=== PATIENT | female | born 1960 | race Caucasian/White ===

== ENCOUNTER 2017-04-02 11:49 | Day surgery (SDC) | payer MEDICARE, MEDICAID ==
--- NOTE | 2017-03-17 22:20 | HP ---
ADMISSION HISTORY AND PHYSICAL: DATE OF ADMISSION: 04/02/17 PATIENT OF: David Flores MD (dictated by SONAM Welsh). CHIEF COMPLAINT: Right upper quadrant abdominal pain and known history of cholelithiasis. HISTORY OF PRESENT ILLNESS: Sully is a pleasant 57-year-old female, who presented to our office today for a preoperative evaluation considering a scheduled laparoscopic cholecystectomy to be performed by Dr. David Flores on 02/14. The patient reports an ongoing pain usually located to her epigastric and right upper quadrant on and off for the past year or so. She is known to our practice from prior laparoscopic sleeve gastrectomy back in March 2015. She had lost approximately 100 pounds and has been doing very well with her weight loss. She described her pain as being dull with sharp episode mostly postprandial, localized to right upper quadrant with no radiation or any other associated symptoms. She denied any nausea, vomiting, changes in the bowel habits or changes in the color of stool or urine. She had a right upper quadrant ultrasound 2 weeks ago that revealed cholelithiasis with no evidence of inflammation or CBD dilatation. She was seen by Dr. Flores last week and had a good discussion regarding her sonogram findings and planning to do a laparoscopic cholecystectomy on a later date electively. The patient had moved out of town since then and she is currently residing in [place], but willing to drive and travel to have her surgery at [facility]. As mentioned above, she has been doing very well with her weight loss. She was seen in the office today to answer a few questions and to do her preadmission testing as well as to discuss her planned surgery 2 weeks from today. PAST MEDICAL HISTORY: Essentially unremarkable. She does take a beta-aly for essential tremors, but denies any history of heart, lung, kidney or liver disease. PAST SURGICAL HISTORY: Significant for left total knee arthroplasty, right rotator cuff repair, total abdominal hysterectomy with BSO, repair of epigastric hernia at age 1. She also reports right knee arthroscopy with meniscus repair 2 weeks ago. CURRENT MEDICATIONS: Her medications at home include: 1. Omeprazole 20 mg 1 tablet every day. 2. Propranolol 10 mg 1 tablet daily. 3. Multivitamin 1 tablet every day. 4. Calcium chew 1 tablet every day. 5. Vitamin B12 once by mouth every day. ALLERGIES: She is allergic to CODEINE, OXYCODONE, and HYDROCODONE. FAMILY HISTORY: She denies any family history of gallbladder disease or colorectal malignancies. SOCIAL HISTORY: The patient is a nonsmoker who denies alcohol intake and caffeine intake is minimal. She had moved from [facility] and now lives in [place]. REVIEW OF SYSTEMS: See HPI, otherwise negative. She denies any headache, dizziness, change of vision, recent weight loss. No fever, chills, chest pain or shortness of breath. She denies any nausea, vomiting, changes in the bowel habits or bleeding per rectum. No flank pain, dysuria, hematuria, or urinary frequency. PHYSICAL EXAMINATION GENERAL: She is a pleasant middle-aged female, appears healthy and in no acute distress or discomfort at the time of her office visit. VITAL SIGNS: Revealed blood pressure of 108/70, respiration of 16, temperature of 97.0, and pulse of 78. The patient's height of 63 inches and weight 169 pounds given her BMI of 29.9 HEENT: Sclerae anicteric. PERRLA. EOMs intact. Oropharynx is pink, moist with no exudate. NECK: Supple. Trachea midline. No cervical adenopathy, thyromegaly, or JVD. LUNGS: Clear to auscultation bilaterally. HEART: Regular rate and rhythm. Normal S1 and S2 without rubs, murmurs, or gallops. BACK: With normal curvature. No CVA tenderness. ABDOMEN: Soft and nondistended. Mild right upper quadrant tenderness on deep palpation. However, there is no guarding, rigidity, or rebound tenderness. Flaherty's sign was negative. Incisions from prior sleeve gastrectomy are well healed. No evidence of hernias, masses, or hepatosplenomegaly. BREASTS: Deferred at this time. EXTREMITIES: Without cyanosis, clubbing, or edema. NEUROLOGIC: Grossly intact. RECTAL: Deferred at this time. ACCESSORY DIAGNOSTIC DATA: As mentioned above, the patient had a sonogram earlier this month revealing evidence of cholelithiasis with no surrounding edema or dilation of the common duct. IMPRESSION: A 57-year-old female with signs and symptoms as well as sonogram findings consistent with chronic cholecystitis with cholelithiasis. PLAN: The patient is scheduled for an elective laparoscopic cholecystectomy to be performed by Dr. Flores on 04/02/17. She was here in the office today to answer few questions and to discuss surgery with her. She will also have her preadmission testing including laboratory workup and EKG later this afternoon. I went on and discussed with her proceeding with a laparoscopic cholecystectomy given her ongoing symptoms. The rationale, indications, risks, and benefits of the procedure were discussed with her today. Risks include, but not limited to infection, bleeding, or injury to adjacent structures. She seems to understand and wishes to proceed as outlined. It is also to be mentioned that given her allergies to CODEINE and HYDROCODONE, I offered given her tramadol to be filled today to use postoperatively; however, the patient informed me that she has a lot of tramadol at home that was given to her after her knee arthroscopy 2 weeks ago. No script for any pain medication was given to her today per patient request and I will reevaluate that in 2 weeks after her surgery to see if she will need any pain prescriptions to be taken home. We will follow her up accordingly after the surgery. [facility] SONAM BRADSHAW CC: Justin Harrington MD* [id number]/[facility] #: [id number] MTDJuanito
[~2017-04-02 11:49] MED LIST: Buffered Lidocaine 1% SYRIN* 3 ML/SYR SYRINGE INTRADERM ONE
[2017-04-02] MEDS ORDERED: ceFAZolin 2 GM PREMIX(*) 2 GM/50 ML BAG IVPB ONE (12:00)
[2017-04-02] MEDS ORDERED: fentaNYL* 50 MCG/ML 2 ML VIAL (100 MCG VIAL) ONE ×3 (13:28→15:39)
[2017-04-02] MEDS ORDERED: Midazolam* 1 MG/ML 2 ML VIAL (2 MG) ONE (13:28)
[2017-04-02] MEDS ORDERED: Bupivacaine 0.25% EPI 200,000* 30 ML SDV ONE (13:49)
[2017-04-02] MEDS ORDERED: Propofol* 10 MG/ML 20 ML BTL IV PUSH ONE (14:22)
[2017-04-02] MEDS ORDERED: Dexamethasone IV* 4 MG/ML 1 ML (4 MG) ONE (14:22)
[2017-04-02] MEDS ORDERED: Ondansetron INJ* 2 MG/ML VIAL ONE (14:22)
[2017-04-02] MEDS ORDERED: Scopolamine 1.5 mg* PATCH TRANSDERM PRN (14:45)
[2017-04-02] MEDS ORDERED: Metoclopramide IV* 5 MG/ML 2 ML VIAL IV PRN (14:45)
[2017-04-02] MEDS ORDERED: Bacitracin OINTMENT* 1 TUBE ONE (14:58)
--- NOTE | 2017-04-02 15:02 | SURGPN ---
Brief Operative Note - Surgery Procedures: Procedures Pre-OP Diagnoses: chronic cholecystitis Post-op Diagnosis: same Procedure: Laparoscopic cholecystectomy Surgeon: Sandra Asst: Pardeep Heartthebentley: MELLISA Sanchez EBL: minimal IVF: 900ccLR Specimen: gallbladder Drains: none
[2017-04-02] MEDS ORDERED: HYDROmorphone* 1 MG/ML 1 ML SYR ONE (15:39)
[2017-04-02] MEDS: fentaNYL* 50 MCG/ML 2 ML VIAL (100 MCG VIAL) IV PRN ×3 (15:40→15:58)
[2017-04-02] MEDS: HYDROmorphone* 1 MG/ML 1 ML SYR IV PRN ×3 (15:41→15:57)
[2017-04-02] MEDS ORDERED: diPHENhydraMINE PO* 25 MG PO PRN (16:20)
[2017-04-02 17:08] VITALS: BP 136/84
--- NOTE | 2017-04-02 22:06 | OP ---
DATE OF OPERATION: 04/02/17 - [facility] DATE OF : 56 SURGEON: David Flores MD NETEZZA DEVELOPER: SONAM Lopes ANESTHESIOLOGIST: Tuyet Sanchez MD ANESTHESIA: General. PRE-OP DIAGNOSIS: Chronic cholecystitis. POST-OP DIAGNOSIS: Chronic cholecystitis. OPERATIVE PROCEDURE: Laparoscopic cholecystectomy. ESTIMATED BLOOD LOSS: Minimal blood loss. FLUIDS: Minimal crystalloid fluid given, 800 cc. SPECIMEN: Gallbladder. COUNTS: Lap pad count and instrument count correct at the end of the procedure. DRAINS: None. DESCRIPTION OF PROCEDURE: The patient was identified in the preoperative area, consent signed. The patient was taken to the operating room, placed on the operating table in a supine position. Preoperative antibiotics were given. Sequential devices were placed on bilateral lower extremities. General anesthesia was induced. The patient's abdomen was prepped and draped in a standard surgical fashion and time-out was performed. Folds of the umbilicus were elevated anteriorly and a Veress needle was inserted into the abdominal cavity, which was then allowed to insufflate to a pressure of 15 mmHg. The patient tolerated the insufflation well. At the Veress needle, an incision was made. The Veress needle was removed and a 5-mm trocar was inserted into the abdominal cavity. Laparoscope was inserted through this. There was no evidence of injury from the trocar insertion or the Veress needle. Additional trocars were then placed in the following position: A 12 mm in the subxiphoid area and two 5 mm along the right costal margin. The table was repositioned and the gallbladder was identified. There were some adhesions to the duodenum. These were taken down with sharp dissection and this exposed the infundibular region of the gallbladder. This was grasped, retracted towards the right lower quadrant. This exposed the triangle of Calot with the common bile duct and cystic duct identified. The peritoneum was then taken up the medial aspect of the gallbladder with electrocautery and off the lateral aspect, the cystic duct was isolated as was the cystic artery. The cystic artery was clipped and ligated. The cystic duct was triply clipped and ligated. Gallbladder was removed from the liver bed. Additional posterior branches were identified and clipped. We did a puncture through the gallbladder at one point, minimal bile was drained, but the gallbladder was then removed from the liver bed, placed in the endoscopic retrieval bag, and brought out through the subxiphoid port without any issue. Review of the gallbladder fossa revealed mild oozing, this was controlled with electrocautery. We irrigated the area until the effluent was clear of any bile. The cystic duct stump and cystic artery stump were intact with no bile leakage and no bleeding. The patient was inverted to a neutral position. Abdomen was allowed to collapse. Trocars were removed under direct vision. The umbilical port site was reapproximated with a 3-0 chromic suture in a simple fashion and the other 3 incisions were closed with subcuticular 4-0 Monocryl stitches. Steri-Strips and sterile dressing were applied. The patient tolerated the procedure well, was awoken up in the OR and transferred to the PACU in stable condition. It should be noted the sleeve of the stomach was identified, showed no twisting, corkscrewing, it was intact and under the edge of the liver. CC: Justin Harrington MD; [facility] * [id number]/[facility] #: [id number] BEN
== END 2017-04-02 17:26 | disposition home or self-care (01) ==
LOC: OR 11:49
PROVIDERS: ATTEND Surgery
DX: K80.10 Calculus of gallbladder with chronic cholecystitis without obstruction (principal)
CPT/HCPCS: 88304; A9270-GY; J0690; J1100; J1170; J2250; J2405; J2704; J3010